=== PATIENT | female | born 1985 | race African-American/Black ===

== ENCOUNTER 2020-07-31 19:44 | Emergency (ER) | payer OTHER ==
[~2020-07-31] VITALS: Ht 149.9 cm; Wt 56.7 kg
[2020-07-31 20:25] LABS: ABSOLUTE NEUTROPHILS 2.4 thou/uL (1.4-8.2); BASOPHILS 0.9 % (0.0-2.0); EOSINOPHILS 0.5 % (0.0-3.0); HEMATOCRIT 39.6 % (37.0-47.0); HEMOGLOBIN 12.8 gm/dL (12.0-15.0); LYMPHOCYTES 45.3 % (24.0-44.0); MCH 28.6 pg (26.0-34.0); MCHC 32.2 g/dL (28.0-37.0); MCV 88.8 fL (80.0-100.0); MONOCYTES 10.4 % (1.0-8.0); PLATELET COUNT 365 thou/uL (150-400); POLYS 42.9 % (36.0-66.0); RBC 4.45 mil/uL (4.20-5.00); RDW 14.9 % (10.5-14.5); WBC 5.5 thou/uL (4.0-11.0)
[2020-07-31 20:28] LABS: ANION GAP 13 mmol/L (7-16); BUN 11 mg/dL (7-18); CALCIUM 8.8 mg/dL (8.5-10.1); CHLORIDE 99 mmol/L (98-107); CO2 22 mmol/L (21-32); CREATININE 0.9 mg/dL (0.6-1.0); GLUCOSE 99 mg/dL (74-106); POTASSIUM 3.5 mmol/L (3.5-5.1); SODIUM 134 mmol/L (136-145)
[2020-07-31 20:38] LABS: ALBUMIN 4.2 g/dL (3.4-5.0); SGOT 68 U/L (15-37); SGPT 41 U/L (14-59); TOTAL BILIRUBIN 0.4 mg/dL (0.2-1.0); TOTAL PROTEIN 9.1 g/dL (6.4-8.2); TROPONIN-I <0.06 ng/mL (<0.06)
[2020-07-31] MEDS ORDERED: LABETALOL HCL100 MG PO ×2 (21:23→21:24)
[2020-07-31] MEDS ORDERED: PLAQUENIL200 MG PO (21:24)
[2020-07-31] MEDS ORDERED: METHOTREXATE 22.5 M1 PO (21:25)
[2020-07-31 21:26] LABS: URINE BILIRUBIN NEGATIVE (Negative); URINE BLOOD 2+ (Negative); URINE CLARITY CLEAR; URINE COLOR YELLOW; URINE GLUCOSE-RANDOM* NEGATIVE (Negative); URINE KETONES NEGATIVE (Negative); URINE LEUKOCYTES-REFLEX NEGATIVE (Negative); URINE NITRITE-REFLEX NEGATIVE (Negative); URINE PROTEIN (DIPSTICK) NEGATIVE (Negative); URINE SPECIFIC GRAVITY <= 1.005 (1.005-1.035); URINE UROBILINOGEN 0.2 E.U./dl (0.2-1.0)
[2020-07-31] MEDS ORDERED: PREDNISONE 5 MG5 M1 PO ×2 (21:26→21:27)
[2020-07-31 21:39] LABS: CASTS None Seen /LPF (None Seen); MUCUS None Seen strn/LPF (None Seen); SQUAMOUS >10 Many /LPF (0-3)
[2020-07-31 21:40] LABS: BACTERIA-REFLEX 1-9 Few /HPF (None Seen); CRYSTALS None Seen /LPF (None Seen); URINE RBC 3-10 Few /HPF (0-2); URINE WBC-REFLEX 0-5 Rare /HPF (0-5)
[2020-07-31] MEDS ORDERED: DICLEGIS DR 101 EACH PO (22:36)
[2020-07-31 22:38] VITALS: BP 160/96
--- NOTE | 2020-08-01 07:20 | EKG ---
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
== END 2020-07-31 22:40 | disposition home or self-care (01) ==
LOC: ER 19:44
PROVIDERS: Emergency Medicine
DX: I10 Essential (primary) hypertension (principal); E86.0 Dehydration; R11.2 Nausea with vomiting, unspecified; R19.7 Diarrhea, unspecified; Z79.899 Other long term (current) drug therapy; Z20.822 Contact with and (suspected) exposure to COVID-19